=== PATIENT | female | born 1955 | race Hispanic/Latino ===

== ENCOUNTER → 2020-02-01 | Day surgery (SDC) | payer OTHER ==
[2020-01-27 13:35] LABS: BASOPHILS # (AUTO) 0.1 (0.0-0.1); BASOPHILS % 0.6 % (0.0-1.0); EOSINOPHILS # (AUTO) 0.2 (0.0-0.4); EOSINOPHILS % 1.8 % (0.0-6.0); HEMATOCRIT 37.9 % (34.2-44.1); HEMOGLOBIN 11.6 g/dL (12.0-16.0); LYMPHOCYTES # (AUTO) 1.7 (1.0-3.2); LYMPHOCYTES % 20.4 % (18.0-39.1); MEAN CORPUSCULAR HEMOGLOBIN 30.1 pg (28-32); MEAN CORPUSCULAR HGB CONC 30.6 g/dL (31-35); MEAN CORPUSCULAR VOLUME 98.4 fL (81-99); MONOCYTES # (AUTO) 0.6 (0.2-0.8); MONOCYTES % 7.7 % (4.4-11.3); NEUTROPHILS # (AUTO) 5.7 (2.1-6.9); PLATELET COUNT 340 x10e3/uL (140-360); RED BLOOD COUNT 3.85 x10e6/uL (3.6-5.1); RED CELL DISTRIBUTION WIDTH 13.5 % (11.7-14.4)
--- NOTE | 2020-01-27 13:36 | Diagnostic Imaging Report ---
X-ray chest PA and lateral Comparison: None History: Preop Findings: Central airways unremarkable. Atherosclerotic aorta. Heart size normal. Other mediastinal contours unremarkable. No pleural effusion. No pneumothorax. An oval nodular density measuring approximately 10 mm in the left upper lung. No calcification associated with this opacity. Minimal discoid atelectasis in the left midlung zone. Visualized skeletal structures unremarkable. Upper abdomen unremarkable. Impression: No acute disease. A CT of the chest should be considered for left upper lung nodular opacity. Signed by: Edgardo Manning MD on 01/27/2020 1:32 PM
[2020-01-27 13:57] LABS: ANION GAP 13.8 mmol/L (8-16); BLOOD UREA NITROGEN 22 mg/dL (7-26); BUN/CREATININE RATIO 27 (6-25); CALCIUM 10.2 mg/dL (8.4-10.2); CARBON DIOXIDE 25 mmol/L (22-29); CHLORIDE 102 mmol/L (98-107); CREATININE, SERUM 0.83 mg/dL (0.57-1.11); EST GLOMERULAR FILTRATION RATE > 60 ML/MIN (60-); GLUCOSE 84 mg/dL (74-118); POTASSIUM 3.8 mmol/L (3.5-5.1); SODIUM 137 mmol/L (136-145)
[~2020-02-01] MED LIST: ACETAMINOPHEN 1000 MG/100 ML 100 ML IV ONE; ACETAMINOPHEN/CODEINE 300MG - 30MG TAB ONE; ACTOS15 MG PO; ANTARA90 MG PO; BUPIVACAINE HCL 0.5% INJ 30 ML VIAL INJ ONE; BYSTOLIC10 MG PO; CEFAZOLIN SOD 1 GM/NS 50ML 50 ML IV ONE; DEXAMETHASONE SOD PHOS INJ 4 MG/ML VIAL ONE; EPHEDRINE SULFATE INJ 50 MG/ML VIAL ONE; ETOMIDATE 2 MG/ML 10 ML INJ IV ONE; FENTANYL CITRATE/PF 100MCG/2 ML INJ ONE; GLYCOPYRROLATE INJ 0.2 MG/ML VIAL ONE; LIDOCAINE HCL 2% LOCAL INJ 5 ML SDV VIAL INJ ONE; LISINOPRIL-HCT1 EAC1 PO; METFORMIN HCL500 MG PO; NAPROXEN250 MG PO; ONDANSETRON HCL INJ 2MG/ML 2ML 2 MG/ML VIAL ONE; SEVOFLURANE INHAL SOLN 250 ML PEN BTL ONE; SOLIFENACIN SUCC5 MG PO
[2020-02-01 13:30] VITALS: BP 164/75
--- NOTE | 2020-02-01 13:39 | Operative Report ---
DATE OF PROCEDURE: 02/01/2020 SURGEON: Moisés Robledo MD TRAINING PROFESSIONAL: Krunal Bustos, certified PA. PREOPERATIVE DIAGNOSES: Right distal radius fracture and right ulnar styloid fracture. POSTOPERATIVE DIAGNOSES: Right distal radius fracture and right ulnar styloid fracture. PROCEDURE: Open reduction and internal fixation of right distal radius. INDICATIONS: The patient is a 64-year-old lady, who sustained a severe fracture of her right distal radius. This is essentially a fracture dislocation. The findings and options were discussed. The fracture was grossly unstable. We recommended open reduction with internal fixation. The risks and benefits were discussed at length. The patient stated she understood and wished to proceed. PROCEDURE IN DETAIL: The patient was brought to the operating room and placed under general anesthetic. Her right upper extremity was prepped and draped in a sterile manner. She received prophylactic antibiotics in the holding area. The extremity was exsanguinated and a proximal tourniquet was inflated to 250 mmHg. A volar approach was made to the right distal radius. A flexor carpi radialis tendon was identified and opened. Care was taken to avoid injury to the palmar cutaneous branch of the median nerve. Deep dissection was carried down. The fracture site was carefully exposed and reduced. The pronator muscle was elevated off the distal radius. A [employer] pre-contoured distal radius plate was then placed over the bone. A single compression screw was placed in the variable slot. The C-arm image intensifier was brought in. The positioning of the plate was slightly adjusted. The plate was then fixed with distal locking screws and a combination of compression and locking screws proximally. Intraoperative x-rays confirmed anatomic reduction and good positioning of the hardware. The wound was thoroughly irrigated. The pronator muscle was reapproximated. The skin was closed with subcuticular Vicryl and nylon stitches. A 10 mL of 0.5% Marcaine without epinephrine were injected around the incision. A sterile bandage and a sugar-tong splint were applied. The patient was extubated and transported to the recovery room in stable condition. There was no blood loss and all needle and sponge counts were correct. Moisés Robledo MD DR/PRO /[id number]
== END | disposition home or self-care (01) ==
LOC: OR 08:43
PROVIDERS: ATTEND Specialist
DX: S52.571A Other intraarticular fracture of lower end of right radius, initial encounter for closed fracture (principal); S52.611A Displaced fracture of right ulna styloid process, initial encounter for closed fracture; E11.9 Type 2 diabetes mellitus without complications; I10 Essential (primary) hypertension; W19.XXXA Unspecified fall, initial encounter; Y92.89 Other specified places as the place of occurrence of the external cause; Z88.6 Allergy status to analgesic agent; Z01.810 Encounter for preprocedural cardiovascular examination; Z01.812 Encounter for preprocedural laboratory examination; Z01.818 Encounter for other preprocedural examination; Z11.59 Encounter for screening for other viral diseases; Z79.84 Long term (current) use of oral hypoglycemic drugs
CPT/HCPCS: 36415; 71046; 76000; 80048; 82948; 85025; 93005; C1713; J0690; J1100; J2001; J2405; J3010; U0002

== ENCOUNTER 2020-03-15 13:50 | Outpatient (RCR) | payer OTHER ==
[~2020-03-15 13:50] MED LIST changes: -ACETAMINOPHEN 1000 MG/100 ML 100 ML IV ONE; -ACETAMINOPHEN/CODEINE 300MG - 30MG TAB ONE; -BUPIVACAINE HCL 0.5% INJ 30 ML VIAL INJ ONE; -CEFAZOLIN SOD 1 GM/NS 50ML 50 ML IV ONE; -DEXAMETHASONE SOD PHOS INJ 4 MG/ML VIAL ONE; -EPHEDRINE SULFATE INJ 50 MG/ML VIAL ONE; -ETOMIDATE 2 MG/ML 10 ML INJ IV ONE; -FENTANYL CITRATE/PF 100MCG/2 ML INJ ONE; -GLYCOPYRROLATE INJ 0.2 MG/ML VIAL ONE; -LIDOCAINE HCL 2% LOCAL INJ 5 ML SDV VIAL INJ ONE; -ONDANSETRON HCL INJ 2MG/ML 2ML 2 MG/ML VIAL ONE; -SEVOFLURANE INHAL SOLN 250 ML PEN BTL ONE
== END 2020-03-20 ==
LOC: OT 13:50
PROVIDERS: ATTEND Specialist
DX: S52.501D Unspecified fracture of the lower end of right radius, subsequent encounter for closed fracture with routine healing (principal); M25.531 Pain in right wrist; M25.631 Stiffness of right wrist, not elsewhere classified; R53.1 Weakness; M25.441 Effusion, right hand

== ENCOUNTER → 2020-04-19 | Outpatient (RCR) | payer OTHER | LOC: OT 03-28 08:39 | PROVIDERS: ATTEND Specialist | DX: S52.501D Unspecified fracture of the lower end of right radius, subsequent encounter for closed fracture with routine healing (principal); M25.531 Pain in right wrist; M25.631 Stiffness of right wrist, not elsewhere classified; R53.1 Weakness; M25.441 Effusion, right hand ==

== ENCOUNTER 2020-04-24 08:43 | Outpatient (RCR) | payer OTHER | END 2020-05-20 | LOC: OT 08:43 | PROVIDERS: ATTEND Specialist | DX: S62.101A Fracture of unspecified carpal bone, right wrist, initial encounter for closed fracture (principal) ==

== ENCOUNTER → 2025-04-25 | Day surgery (SDC) | payer MEDICARE ==
[~2025-04-25] MED LIST changes: +ACETAMINOPHEN 1000 MG/100 ML 100 ML IV ONE; +CALCIUM CITRAT200 MG; +CALCIUM CITRAT250 MG PO; +CRESTOR40 MG PO; +DEXAMETHASONE SOD PHOS INJ 4 MG/ML SDV ONE; +EPHEDRINE SULFATE INJ 50 MG/ML VIAL ONE; +FAMOTIDINE 20 MG/2 ML VIAL IV ONE; +FENTANYL CITRATE/PF 100MCG/2 ML INJ ONE; +GLYCOPYRROLATE INJ 0.2 MG/ML VIAL ONE; +HYDROCHLOROTHIA25 MG PO; +LACTATED RINGER'S 1,000 ML ONE; +LIDOCAINE HCL 2% LOCAL INJ 5 ML SDV VIAL INJ ONE; +METFORMIN HCL500 M2 PO; +MIDAZOLAM HCL 2 MG/2 ML VIAL ONE; +OMEGA 3 1,0001 EACH PO; +ONDANSETRON HCL INJ 2MG/ML 2ML 2 MG/ML VIAL ONE; +PROPOFOL IV EMULSION 10 MG/ML 20 ML VIAL ONE
[2025-04-25 07:30] VITALS: TEMP 98.4
[2025-04-25 08:35] VITALS: BP 150/76; PULSE 70; RESP 16; O2SAT 96
== END | disposition home or self-care (01) ==
LOC: OR 05:13
PROVIDERS: ATTEND Specialist
DX: T84.84XA Pain due to internal orthopedic prosthetic devices, implants and grafts, initial encounter (principal); S80.02XA Contusion of left knee, initial encounter; Z96.651 Presence of right artificial knee joint; E11.9 Type 2 diabetes mellitus without complications; I25.10 Atherosclerotic heart disease of native coronary artery without angina pectoris; I25.2 Old myocardial infarction; I10 Essential (primary) hypertension; E78.5 Hyperlipidemia, unspecified; Y83.8 Other surgical procedures as the cause of abnormal reaction of the patient, or of later complication, without mention of misadventure at the time of the procedure; Z01.810 Encounter for preprocedural cardiovascular examination; Z01.812 Encounter for preprocedural laboratory examination; Z01.818 Encounter for other preprocedural examination; Z79.84 Long term (current) use of oral hypoglycemic drugs; Z79.1 Long term (current) use of non-steroidal anti-inflammatories (NSAID); Z79.899 Other long term (current) drug therapy; Z87.891 Personal history of nicotine dependence
CPT/HCPCS: 20680; 36415 ×2; 71046; 76000; 80048; 82948; 85025; 93005; J0131; J0690; J1100; J1308; J2003; J2250; J2405; J2704; J3010; J7121